=== PATIENT | female | born 1995 | race Caucasian/White ===

== ENCOUNTER 2019-01-30 07:31 | Emergency (ER) | payer SELFPAY ==
[2019-01-30 07:32] VITALS: BP 160/99; PULSE 105; RESP 17; TEMP 36.9; O2SAT 98; BMI 40.3
--- NOTE | 2019-01-30 07:50 | CT_ITS ---
STUDY: CT ABDOMEN AND PELVIS WITH CONTRAST REASON FOR EXAM: Female, 23 years old. Lower abdominal pain and abdominal cramping. RADIATION DOSAGE (If Supplied By Facility): CTDIvol = ( 18.69 ) mGy, DLP = ( 1320.39 ) mGycm TECHNIQUE: Transaxial images were obtained from the dome of the diaphragm to the symphysis pubis with oral contrast. IV/Oral Isovue 370 100 was administered. Sagittal and coronal images were reconstructed. Individualized dose optimization techniques were used for this CT. COMPARISON: None. FINDINGS: The visualized lung bases are unremarkable. The visualized portions of the heart are within normal limits. Normal liver. Normal gallbladder and extrahepatic biliary system. Normal spleen. Normal pancreas. Normal bilateral adrenal glands. Normal right kidney. Normal left kidney. There is a small hiatal hernia. Normal small intestine. Normal colon. Findings suggestive of small lymph nodes in the mesentery in the right lower quadrant suggest mesenteric adenitis. The appendix is visualized and appears normal. Normal abdominal aorta. Normal inferior vena cava. There is borderline retroperitoneal lymphadenopathy with enlarged nodes no greater than 10mm in the short axis diameter. Normal urinary bladder. IUD seen within the uterus. Small amount of the fluid in the cul-de-sac. Follicles are seen in the right ovary. Normal abdominal wall. Small benign-appearing lymph nodes in the inguinal regions bilaterally. Normal osseous structures. CT/Abdomen/Pelvis WITH Contrast IMPRESSION: Small amount of fluid is seen in the cul-de-sac. Follicles are seen in the right ovary. IUD is seen within the uterus. Mesenteric adenitis. Electronically Signed: Dung Pinzon, at 11:08 EST , Service support ,
--- NOTE | 2019-01-30 07:53 | ED.VIS.GEN ---
History of Present Illness Chief Complaint: Abd Pain Informant: Patient Onset: Today Timing: Continuous Current Severity: Moderate Maximum Severity: Moderate Narrative: Patient presents with right lower quadrant abdominal pain that started earlier today. She woke up with this. She has no fever or chills, she has no pelvic pain she has no vaginal bleeding. Last menstrual cycle was a week ago. She has no diarrhea or constipation. She denies any vaginal discharge. No recent cough or congestion. She has no flank pain or hematuria. Past Medical History - Allergies and Home Meds Allergies/Adverse Reactions: Allergies No Known Allergies Allergy (Verified 01/30/19 07:32) Primary Care Physician: NOT,DEFINED [NON-STAFF] - Past Medical History: None Lives: With Family Smoking Status: Never smoker Review of Systems General: Denies: Fever Cardiovascular: Denies: Chest pain Respiratory: Denies: Dyspnea, Cough Gastrointestinal: Reports: Abdominal pain. Denies: Vomiting, Diarrhea Genitourinary: Denies: Dysuria, Hematuria Musculoskeletal: Denies: Back pain Skin: Reports: Rash, - - She developed a rash almost a week ago mostly on her hands, she thinks this is secondary to using gloves at work. She since then switched him, the rash is improved but still there Neurological: Denies: Weakness Endocrine: Denies: Polyuria Hematologic: Denies: Easy bruising Allergy: Denies: Uticaria, Swelling of the mouth Physical Exam Vital Signs/Narrative: Vital Signs Temp Pulse Resp BP Pulse Ox 01/30/19 07:32 98.5 F 105 H 17 160/99 H 98 General: Well nourished Head: Normocephalic, Atraumatic ENT: Moist mucous membranes Cardiovascular: Regular rate, Regular rhythm Respiratory: No distress, CTA bilaterally Abdomen: Soft, - - There is right lower quadrant abdominal pain without any guarding or rebound. The pain is over McBurney's. There is no lower pain in the pelvic region. Back: Nontender. Negative for: CVA tenderness Extremities: Nontender, No edema Skin: Normal color, - - There is a pink-salmon blanching confluent rash on the hands, there is some spots on the arms. It is nonraised. There is no calor. This is consistent with allergic dermatitis. Neurological: Alert, Normal Strength Psychological: Normal affect Diagnostic/Tx/Re-eval - Medical Decision Making She has an unremarkable CT other than mesenteric adenitis. She is reassured. I believe she is stable for discharge with anti-inflammatories. Discharge stable condition ED Disposition - Plan for ED Patient: Disposition: Home or Assisted Living Diagnosis: Mesenteric adenitis, Abdominal pain Instructions: ABDOMINAL PAIN, Unknown Cause, (Female), Adenitis, Mesenteric Prescriptions: Naproxen [Naprosyn] 500 mg PO BID PRN #20 tab Prescription Printed Referrals: Umer Williamson MD [STAFF PHYSICIAN] - 3-5 Days
[2019-01-30] MEDS: Ondansetron 4 MG/2 ML Vial IV (08:09)
[2019-01-30] MEDS: Morphine 2 MG/ML Syringe IV (08:09)
[2019-01-30 08:22] LABS: Absolute Lymphocyte Count 2.76 X10^3/uL (0.83-4.51); Absolute Neutrophil Count 5.7 X10^3/uL (2.0-7.7); Basophil# 0.04 X10^3/uL; Basophil% 0.4 % (0-1); Eosinophil# 0.38 X10^3/uL; Hematocrit 40.5 % (37-47); Hemoglobin 13.3 g/dL (12.0-15.0); Lymphocyte # 2.76 X10^3/ul (4.0); Lymphocyte % 28.9 % (19-41); Mean Corp Hgb Conc 32.8 g/dL (32-36); Mean Corpuscular Hgb 26.2 pg (27.0-32.0); Mean Corpuscular Volume 79.9 fL (81-99); Mean Platelet Vol. 10.8 fl (6.2-12.0); Monocyte# 0.69 X10^3/uL; Monocyte% 7.2 % (0-10); NRBC Flagged by Analyzer 0 % (0-5); Neutrophil # 5.66 X10^3/uL (2.7-7.7); Neutrophil % 59.3 % (47-70); Platelet Count 270 K/mm3 (150-450); RBC Distribution Width CV 14.6 % (11.6-14.6); RBC Distribution Width SD 42.4 fl (35.1-43.9); Red Blood Count 5.07 M/mm3 (4.2-5.4); White Blood Count 9.6 K/mm3 (4.4-11.0)
[2019-01-30 08:37] LABS: AST(SGOT) 14 U/L (15-37); Alanine Aminotransfer ALT/SGPT 21 U/L (13-56); Albumin, Serum 3.5 g/dL (3.2-5.0); Alkaline Phosphatase 54 U/L (45-117); Anion Gap 7 (5-15); BUN 15 mg/dL (7-18); BUN/Creat Ratio 22.4 RATIO (10-20); Chloride 108 mmol/L (98-107); Creatinine, Serum 0.67 mg/dL (0.55-1.02); EST Glomerular Filtration Rate 117 mL/min (>60); Est Glom Filt Rate - Afr Amer 141 mL/min (>60); Globulin 3.5 g/dL (2.2-4.2); Glucose 106 mg/dL (74-106); Lipase 114 U/L (73-393); Potassium 3.9 mmol/L (3.5-5.1); Sodium Level 141 mmol/L (136-145)
[2019-01-30 10:14] LABS: Bacteria 0 SEEN /hpf (None Seen); Mucous, Urine 0 SEEN /hpf (<or=2+); Red Blood Cells-Urine 0 SEEN /hpf (0-5)
[2019-01-30 10:18] LABS: Color, Urine Yellow (Yellow); Glucose, Dipstick Normal (Normal); Ketone-Dipstick Negative (Negative); Leukocyte Esterase-Dipstick 25 /ul (Negative); Nitrite-Dipstick Negative (Negative); Occult Blood-Urine Negative /ul (Negative); Protein-Dipstick Negative (Negative); Specific Gravity, Urine 1.015 (1.002-1.030); Urine Bilirubin Dipstick Negative (Negative); Urine Clarity Sl. Cloudy (Clear); Urine Urobilinogen Normal (Normal)
[2019-01-30 10:19] LABS: Internal QC Validated? YES +Cl - CLEAR BKGD; Pregnancy, Urine Negative Negative
[2019-01-30 10:24] LABS: Squamous Epithelial Cells - UA 0-5 SEEN /hpf (5-10); White Blood Cells 0-5 SEEN /hpf (0-5)
[2019-01-30 12:00] VITALS: RESP 18
== END 2019-01-30 12:02 | disposition home or self-care (01) ==
PROVIDERS: Emergency Provider Emergency Medicine
DX: I88.0 Nonspecific mesenteric lymphadenitis (principal)
CPT/HCPCS: 74177; 80053; 81001; 81025; 83690; 85025; 96374; 96375; 99283; J7030; J7050; Q9967; A4216; J2405

== ENCOUNTER → 2024-05-26 | Outpatient (CLI) | payer BC, SELFPAY ==
[2024-05-26 17:52] LABS: Absolute Lymphocyte Count 3.55 X10^3/uL (0.83-4.51); Absolute Neutrophil Count 8.1 X10^3/uL (2.0-7.7); Basophil# 0.05 X10^3/uL; Basophil% 0.4 % (0-1); Eosinophil# 0.47 X10^3/uL; Eosinophils% 3.6 % (0-5); Hematocrit 39.4 % (37-47); Hemoglobin 12.8 g/dL (12.0-15.0); Lymphocyte # 3.55 X10^3/ul (0.83-4.51); Lymphocyte % 27.3 % (19-41); Mean Corp Hgb Conc 32.5 g/dL (32-36); Mean Corpuscular Hgb 26.7 pg (27.0-32.0); Mean Corpuscular Volume 82.3 fL (81-99); Mean Platelet Vol. 10.9 fl (6.2-12.0); Monocyte# 0.78 X10^3/uL; NRBC Flagged by Analyzer 0 % (0-5); Neutrophil # 8.09 X10^3/uL (2.7-7.7); Neutrophil % 62.4 % (47-70); Platelet Count 331 K/mm3 (150-450); RBC Distribution Width CV 14.1 % (11.6-14.6); RBC Distribution Width SD 41.7 fl (35.1-43.9); Red Blood Count 4.79 M/mm3 (4.2-5.4)
[2024-05-26 19:07] LABS: ALB/GLOB Ratio 1.4 RATIO (0.9-2.4); AST(SGOT) 16 U/L (<=31); Alanine Aminotransfer ALT/SGPT 16 U/L (<=34); Albumin, Serum 4.3 g/dL (3.5-5.0); Alkaline Phosphatase 53 U/L (35-104); Anion Gap 13 (5-15); BUN 10 mg/dL (4-19); BUN/Creat Ratio 14.9 RATIO (10-20); Calcium,Total 9.6 mg/dL (7.6-11.0); Carbon Dioxide 23.4 mmol/L (21.0-32.0); Chloride 100 mmol/L (98-108); Creatinine, Serum 0.69 mg/dL (0.70-1.20); EST Glomerular Filtration Rate 122 (>60); Globulin 3.1 g/dL (2.2-4.2); Glucose 92 mg/dL (70-99); Potassium 4.4 mmol/L (3.3-5.1); Protein, Total 7.4 g/dL (5.9-8.4); Sodium Level 136 mmol/L (133-145); Total Bilirubin 0.34 mg/dL (0.00-1.30); Vitamin B12 384 pg/mL (180-914)
== END | disposition home or self-care (01) ==
LOC: MFPLAB 15:56
PROVIDERS: Referring Provider Family Medicine; Visit Provider Family Medicine
DX: R53.83 Other fatigue (principal)
CPT/HCPCS: 36415; 80053; 82306; 82607; 84439; 84443; 85025